=== PATIENT | female | born 1975 | race Asian ===

== ENCOUNTER 2017-04-28 00:10 | Inpatient (IN) | payer SELFPAY ==
[~2017-04-28] VITALS: Ht 154.9 cm; Wt 72.6 kg
[2017-04-28] MEDS: LACTATED RINGERS 1,000 ML IV SCH ×4 (01:20→07:43)
[2017-04-28] MEDS ORDERED: CITRIC ACID/SODIUM CITRATE 30 ML UDC PO ONE (01:35)
[2017-04-28 02:00] LABS: BASOPHILS # (AUTO) 0.1 K/uL (0.00-0.22); BASOPHILS % (AUTO) 1.2 % (0.0-2.0); EOSINOPHILS # (AUTO) 0.1 K/uL (0-0.4); EOSINOPHILS % (AUTO) 0.7 % (0.0-4.0); HEMATOCRIT 37.6 % (36-48); HEMOGLOBIN 12.6 g/dL (12.0-16.0); LYMPHOCYTES # (AUTO) 1.6 K/uL (2.5-16.5); MEAN CORPUSCULAR HEMOGLOBIN 33 pg (27-31); MEAN CORPUSCULAR HGB CONC 34 g/dL (33-37); MEAN CORPUSCULAR VOLUME 98 fL (80-94); MONOCYTES # (AUTO) 0.6 K/uL (0.8-1.0); MONOCYTES % (AUTO) 7.5 % (1.7-9.3); NEUTROPHILS # (AUTO) 5.6 K/uL (1.8-7.7); NEUTROPHILS % (AUTO) 70.6 % (42.2-75.2); PLATELET COUNT (AUTO) 172 K/uL (140-450); RED BLOOD CELL COUNT(AUTO) 3.84 MIL/uL (4.20-5.40); RED CELL DISTRIBUTION WIDTH 13.3 % (11.6-13.7)
[2017-04-28 02:00] LABS: APPEARANCE,URINE CLEAR (CLEAR); BILIRUBIN,URINE NEGATIVE (NEGATIVE); BLOOD, URINE NEGATIVE (NEGATIVE); COLOR,URINE YELLOW (YELLOW); LEUKOCYTE ESTERASE ,URINE NEGATIVE (NEGATIVE); NITRITE, URINE NEGATIVE (NEGATIVE); UGLUCOSE NEGATIVE (NEGATIVE)
[2017-04-28] MEDS ORDERED: METF500T PO (02:02)
[2017-04-28] MEDS ORDERED: PREN-546 PO (02:02)
[2017-04-28] MEDS ORDERED: OSC500 PO (02:02)
[2017-04-28 02:18] LABS: RBC,URINE 0-5 (RARE) /HPF (0-5); WBC,URINE 0-5 (RARE) /HPF (0-5)
[2017-04-28 02:21] LABS: ANION GAP 13.5 (8-16); CARBON DIOXIDE 25.3 mmol/L (21-32); CREATININE 0.6 mg/dL (0.6-1.3); POTASSIUM 3.8 mmol/L (3.5-5.1); TOTAL BILIRUBIN 0.3 mg/dL (0.0-1.0)
[2017-04-28 02:46] VITALS: BP 128/69
[2017-04-28] MEDS ORDERED: ceFAZolin 1,000 MG VIAL ONE (05:16)
[2017-04-28] MEDS ORDERED: OXYTOCIN 10 UNITS/ML VIAL ONE (05:56)
[2017-04-28] MEDS ORDERED: METHYLERGONOVINE 0.2 MG/ML AMP ONE (05:57)
[2017-04-28] MEDS ORDERED: TRIAMCINOLONE 40 MG/ML 5ML VIAL ONE (05:57)
[2017-04-28] MEDS ORDERED: MORPHINE PRES FREE 10 MG/10 ML AMP IV ONE (05:58)
[2017-04-28] MEDS ORDERED: MIDAZOLAM 2 MG/2 ML VIAL ONE (05:58)
[2017-04-28] MEDS ORDERED: BUPIVACAINE-MPF 0.75% 10 ML VIAL INJ ONE (06:00)
[2017-04-28] MEDS ORDERED: diphenhydrAMINE 50 MG/ML VIAL IVP PRN ×2 (06:25)
[2017-04-28] MEDS ORDERED: MEPERIDINE 25 MG/ML SYR IVP PRN (06:25)
[2017-04-28] MEDS ORDERED: NALOXONE 0.4 MG/ML VIAL IVP PRN ×3 (06:25)
[2017-04-28] MEDS ORDERED: HYDROmorphone PFS 2 MG/ML SYR IVP PRN (06:25)
[2017-04-28] MEDS ORDERED: ONDANSETRON 4 MG/2 ML VIAL IVP PRN ×2 (06:25)
[2017-04-28] MEDS ORDERED: NALBUPHINE 10 MG/ML AMP IVP PRN (06:25)
[2017-04-28] MEDS ORDERED: OXYTOCIN 10 UNITS/ML VIAL IM ONE (06:29)
[2017-04-28] MEDS ORDERED: TRIAMCINOLONE 40 MG/ML 5ML VIAL IM ONE (06:39)
[2017-04-28] MEDS ORDERED: OXYTOCIN 20 UNITS/LR PREMIX 1,000 ML IV ONE (06:41)
[2017-04-28] MEDS ORDERED: diphenhydrAMINE 50 MG/ML VIAL ONE (06:41)
[2017-04-28] MEDS ORDERED: ONDANSETRON 4 MG/2 ML VIAL ONE (06:53)
[2017-04-28] MEDS ORDERED: HYDROcodone/APAP 5/325 MG 1 TAB TAB ONE (08:02)
[2017-04-28] MEDS: OXYTOCIN 20 UNITS in LACTATED RINGERS 1,000 ML IV SCH ×2 (08:25→16:54)
--- NOTE | 2017-04-28 08:56 | NUR ---
PATIENT HAS BEEN SCREENED AND CATEGORIZED LOW NUTRITION RISK. PATIENT WILL BE SEEN WITHIN 7 DAYS OF ADMISSION. 05/04/[address]
[2017-04-28] MEDS ORDERED: METHYLERGONOVINE 0.2 MG/ML AMP IM PRN (09:15)
[2017-04-28] MEDS ORDERED: BENZOCAINE/MENTHOL 20%-0.5% 60 GM CAN TP PRN (09:15)
[2017-04-28] MEDS ORDERED: oxyCODONE/APAP 5/325 MG 1 TAB TAB PO PRN (09:15)
[2017-04-28] MEDS ORDERED: SODIUM PHOSPHATE 118 ML ENEM RC PRN (09:15)
[2017-04-28] MEDS ORDERED: HYDROcodone/APAP 5/325 MG 1 TAB TAB PO PRN (09:15)
[2017-04-28] MEDS ORDERED: MEASLES, MUMPS, AND RUBELLA 1 VIAL SQVAC PRN (09:15)
[2017-04-28] MEDS ORDERED: TEMAZEPAM 15 MG CAP PO PRN (09:15)
[2017-04-28] MEDS ORDERED: KETOROLAC 30 MG/ML VIAL IM/IVP SCH (12:00)
[2017-04-28] MEDS ORDERED: DOCUSATE SOD/SENNA 50/8.6 MG 1 TAB PO SCH (21:00)
[2017-04-28] MEDS ORDERED: DOCUSATE SODIUM 100 MG GELCAP PO ONE (22:21)
[2017-04-28] MEDS ORDERED: KETOROLAC 30 MG/ML VIAL ONE (22:22)
[2017-04-29] MEDS ORDERED: INFLUENZA VIRUS VACCINE QUAD 0.5 ML SYR IMVAC ONE (01:27)
[2017-04-29] MEDS ORDERED: INFLUENZA VIRUS VACCINE QUAD 0.5 ML SYR IMVAC SCH (03:00)
[2017-04-29] MEDS ORDERED: KETOROLAC 30 MG/ML VIAL ONE (05:02)
[2017-04-29 05:58] LABS: HEMATOCRIT 33.8 % (36-48); HEMOGLOBIN 11.4 g/dL (12.0-16.0)
[2017-04-30] MEDS ORDERED: MEASLES, MUMPS, AND RUBELLA 1 VIAL SQVAC ONE (07:01)
[2017-04-30 14:37] LABS: RAPID PLASMA REAGIN NON-REACTIVE (Non Reactiv)
[2017-05-01] MEDS ORDERED: INFLUENZA VIRUS VACCINE QUAD 0.5 ML SYR IMVAC SCH (20:30)
== END 2017-04-30 12:30 | disposition home or self-care (01) | DRG 766 ==
LOC: MFCC 00:10 → MLD 00:44 → MFCC 07:30
PROVIDERS: ADMIT Obstetrics & Gynecology; ATTEND Obstetrics & Gynecology
PROC: 10D00Z1 Extraction of Products of Conception, Low, Open Approach (ICD-10-PCS; principal; 2017-04-28 06:00)
DX: O34.211 Maternal care for low transverse scar from previous cesarean delivery (principal); Z37.0 Single live birth; Z3A.38 38 weeks gestation of pregnancy
CPT/HCPCS: 36415; 80053; 81001; 85018; 85025; 86592; 86886; 86900; 86901; 90658; 90707; 90715; J0690; J1200; J1885; J2210; J2250; J2270; J2405; J2590; J3301; J3490; J7060; J7120